=== PATIENT | male | born 1960 | race Caucasian/White ===

== ENCOUNTER 2018-07-31 07:35 | Day surgery (SDC) | payer OTHER ==
[2018-07-31] MEDS ORDERED: PROPOFOL 20 ML (10:31)
[2018-07-31] MEDS ORDERED: LIDOCAINE 2% (SDV) 5 ML INJ (10:31)
[2018-07-31] MEDS ORDERED: SUCCINYLCHOLINE CHLORIDE 100 MG/5 ML SYG IV (10:31)
[2018-07-31] MEDS ORDERED: MEPERIDINE 100 MG INJ (10:31)
[2018-07-31] MEDS ORDERED: NEOSTIGMINE 3 MG/3 ML SYRINGE ×2 (10:31→11:20)
[2018-07-31] MEDS ORDERED: GLYCOPYRROLATE 0.4 MG INJ ×2 (10:31→11:20)
[2018-07-31] MEDS ORDERED: ROCURONIUM 50 MG INJ (10:31)
[2018-07-31] MEDS ORDERED: DIPHENHYDRAMINE 50 MG INJ IV (11:00)
[2018-07-31] MEDS ORDERED: HYDROmorphONE 1 MG/5 ML IV SYRINGE IV ×3 (11:00)
[2018-07-31] MEDS ORDERED: METOCLOPRAMIDE 10 MG INJ IV (11:00)
[2018-07-31] MEDS ORDERED: OXYCODONE/ACETAMINOPHEN (5/325) TAB PO ×2 (11:00)
[2018-07-31] MEDS ORDERED: MIDAZOLAM 1 MG/ML 2 ML INJ IV (11:00)
[2018-07-31] MEDS ORDERED: LABETALOL HCL 20MG INJ IV (11:00)
[2018-07-31] MEDS ORDERED: EPHEDrine SULFATE 50 MG/5 ML SYG IV (11:00)
[2018-07-31] MEDS ORDERED: hydrALAzine 20 MG INJ IV (11:00)
[2018-07-31] MEDS ORDERED: MEPERIDINE 25 MG INJ IV (11:00)
[2018-07-31] MEDS ORDERED: FENTAnyl 50 MCG/ML VIAL IV ×3 (11:00)
[2018-07-31] MEDS: COCAINE 4% 4 ML TOP (11:04)
[2018-07-31] MEDS: BACITRACIN/POLYMYXIN 28.35 GM OINT TOP (11:05)
[2018-07-31] MEDS: LIDOCAINE 1%/EPI 30 ML INJ (11:05)
[2018-07-31] MEDS ORDERED: ONDANSETRON 4 MG INJ (11:20)
[2018-07-31] MEDS: ONDANSETRON 4 MG INJ IV (12:14)
[2018-07-31] MEDS ORDERED: HYDROCODONE/APAP (7.5/325) TAB PO (13:00)
== END 2018-07-31 14:15 | disposition home or self-care (01) ==
LOC: SDS 07:35
DX: J38.1 Polyp of vocal cord and larynx (principal); J34.2 Deviated nasal septum; J34.3 Hypertrophy of nasal turbinates
CPT/HCPCS: 30520; 71045; 88300; 88305; 93005